=== PATIENT | female | born 1955 | race Caucasian/White ===

== ENCOUNTER 2018-01-19 21:24 | Emergency (ER) | payer MEDICARE ==
[2018-01-19 23:11] LABS: ABSOLUTE BASOPHILS # (AUTO) 0.1 10^3/uL (0.0-0.2); ABSOLUTE EOSINOPHILS # (AUTO) 0.2 10^3/uL (0.0-0.6); ABSOLUTE LYMPHOCYTES (AUTO) 2.1 10^3/uL (0.5-4.7); ABSOLUTE MONOCYTES (AUTO) 0.6 10^3/uL (0.1-1.4); ABSOLUTE NEUT (AUTO) 3.5 10^3/uL (1.7-8.2); EOSINOPHILS % (AUTO) 2.6 % (0-6); HEMATOCRIT 35.1 % (36.0-47.0); HEMOGLOBIN 12.1 g/dL (12.0-15.5); LYMPHOCYTES % (AUTO) 32.5 % (13-45); MEAN CORPUSCULAR HGB CONC 34.5 g/dL (32.0-36.0); MEAN CORPUSCULAR VOLUME 90 fl (80-97); MONOCYTES % (AUTO) 9.5 % (3-13); PLATELET COUNT 293 10^3/uL (150-450); RED CELL DISTRIBUTION WIDTH 13.6 % (11.5-14.0); SEGMENTED NEUTROPHILS % (AUTO) 54.4 % (42-78); TOTAL CELLS COUNTED % (AUTO) 100 %; WHITE BLOOD COUNT 6.5 10^3/uL (4.0-10.5)
--- NOTE | 2018-01-19 23:13 | ER Document Report ---
ED General - General Chief Complaint: Other Stated Complaint: ALTERED MENTAL STATUS Time Seen by Provider: 01/19/18 21:56 Notes: Patient is a 62-year-old female who presents with complaint of a few different complaints. An ambulnce was called by the hotel staff asked the patient came up to the front hotel desk that she was standing up and asked for a depends diaper. Patient's was recently at [facility] but she was kicked out because per report from the nursing staff she was running around the halls and keeping people up. Patient has a history of psychiatric illness. She is on psychiatric medications. Patient's only complaint is that she has chronic pain medicine and is requesting chronic pain medicine even though she has none prescribed for her. Patient denies any fevers or infections. She denies any other complaints at this time. She admits that she does not have a place to stay at this time. TRAVEL OUTSIDE OF THE [place] IN LAST 30 DAYS: No - Related Data Allergies/Adverse Reactions: aspirin [Aspirin] Allergy (Verified 02/28/15 12:21) guaifenesin [From Mucinex] Allergy (Verified 02/28/15 12:21) ibuprofen [From Motrin] Allergy (Verified 02/28/15 12:21) levetiracetam [From Keppra] Allergy (Verified 02/28/15 12:21) lithium [Morehouse] Allergy (Verified 02/28/15 12:21) metaxalone [From Skelaxin] Allergy (Verified 02/28/15 12:21) methadone [Methadone] Allergy (Verified 02/28/15 12:21) mirtazapine [From Remeron] Allergy (Verified 02/28/15 12:21) nefazodone HCl [From Serzone] Allergy (Verified 02/28/15 12:21) nortriptyline HCl [From Pamelor] Allergy (Verified 02/28/15 12:21) NSAIDS (Non-Steroidal Anti-Inflamma [Nsaids] Allergy (Verified 02/28/15 12:21) omeprazole [From Prilosec] Allergy (Verified 02/28/15 12:21) oxycodone HCl [From Percocet] Allergy (Verified 02/28/15 22:47) Penicillins Allergy (Verified 02/28/15 12:21) pregabalin [From Lyrica] Allergy (Verified 02/28/15 12:21) saccharin [Saccharin] Allergy (Verified 02/28/15 12:21) ziprasidone HCl [From Geodon] Allergy (Verified 02/28/15 12:21) steroid Allergy (Uncoded 02/28/15 12:21) Past Medical History - Social History Smoking Status: Unknown if Ever Smoked Frequency of alcohol use: None Drug Abuse: None Family History: Reviewed & Not Pertinent Patient has suicidal ideation: No Patient has homicidal ideation: No - Past Medical History Cardiac Medical History: Reports: Hx Hypertension Renal/ Medical History: Denies: Hx Peritoneal Dialysis Psychiatric Medical History: Reports: Hx Bipolar Disorder - Immunizations Hx Diphtheria, Pertussis, Tetanus Vaccination: Yes Review of Systems - Review of Systems Notes: My Normal Review Basic REVIEW OF SYSTEMS: CONSTITUTIONAL : Denies fever, chills, or sweats. Denies recent illness. EENT: Denies eye, ear, throat, or mouth pain or symptoms. Denies nasal or sinus congestion. CARDIOVASCULAR: Denies chest pain. RESPIRATORY: Denies cough, cold, or chest congestion. Denies shortness of breath, difficulty breathing, or wheezing. GASTROINTESTINAL: Denies abdominal pain. Denies nausea, vomiting, or diarrhea. GENITOURINARY: Denies difficulty urinating, painful urination, burning, frequency, or blood in urine. MUSCULOSKELETAL: Complains of total body pain which she says is chronic. SKIN: Denies rash or skin lesions. NEUROLOGICAL: Denies altered mental status or loss of consciousness. Denies headache. Denies weakness or paralysis or loss of use of either side. Denies problems with gait or speech. Denies sensory or motor loss. PSYCHIATRIC: History of psychiatric illness ALL OTHER SYSTEMS REVIEWED AND NEGATIVE. Physical Exam - Vital signs Vitals: Temp Pulse Resp BP Pulse Ox 97.7 F 81 17 122/70 100 01/19/18 21:54 01/19/18 21:54 01/19/18 21:54 01/19/18 21:54 01/19/18 21:54 - Notes Notes: General Appearance: Well nourished, alert, cooperative, no acute distress, no obvious discomfort. Vitals: reviewed, See vital signs table. Head: no swelling or tenderness to the head Eyes: PERRL, EOMI, Conjuctiva clear Mouth: No decreasd moisture Throat: No tonsillar inflammation, No airway obstruction, No lymphadenopathy Neck: Supple, no neck tenderness, No thyromegaly Lungs: No wheezing, No rales, No rhonci, No accessory muscle use, good air exchange bilaterally. Heart: Normal rate, Regular rythm, No murmur, no rub Abdomen: Normal BS, soft, No rigidity, No abdominal tenderness, No guarding, no rebound, no abdominal masses, no organomegaly Extremities: strength 5/5 in all extremities, good pulses in all extremities, no swelling or tenderness in the extremities, no edema. Skin: warm, dry, appropriate color, no rash Neuro: speech clear, oriented x 3, responds appropriately to questions. Patient does answer all my questions appropriately. Cranial nerves II through XII are intact. Distal sensation intact. Good strength in all 4 extremities. Patient will occasionally suddenly shake her legs when she is sitting in bed. This appears completely voluntarily. When she does this she says that she does it because she needs pain medications to take in conjunction with her psychiatric medications. Course - Re-evaluation Re-evalutation: 01/20/18 01:09 Patient is well-appearing. She is not altered or confused on my exam. She answers all my questions 100% appropriately. Patient does have psychiatric illness which she does require medications for. She is currently on some medications. Unclear whether or not she takes is that she supposed to. She is requesting narcotic pain medicines which she will not receive as she is not prescribed any on a regular basis. I reviewed her previous records when she was here a few years ago and at that time she was also consistently requesting narcotic pain medicine. I do not think patient requires involuntary commitment at this time; however, I do think it would be beneficial for her to see mental health and aids social worker. I think be beneficial to see mental health to make sure that she is on appropriate medications for her underlying psychiatric history and also to see aids social worker to discuss further housing arrangements for the patient being the obviously she has been kicked out of assisted living and also the hotel. Dictation of this chart was performed using voice recognition software; therefore, there may be some unintended grammatical errors. - Vital Signs Vital signs: Temp Pulse Resp BP Pulse Ox 97.7 F 81 17 122/70 100 01/19/18 21:54 01/19/18 21:54 01/19/18 21:54 01/19/18 21:54 01/19/18 21:54 - Laboratory Result Diagrams: 01/19/18 22:55 01/19/18 22:55 Laboratory results interpreted by me: 01/19/18 01/19/18 01/19/18 22:55 22:55 23:41 Hct 35.1 L Potassium 3.4 L Total Bilirubin 0.1 L Ur Leukocyte Esterase LARGE H Salicylates < 1.0 L Acetaminophen < 10 L - EKG Interpretation by Me Additional EKG results interpreted by me: 01/19/18 23:13 EKGs reviewed and interpreted by me. EKG shows sinus rhythm with a rate of [address] segment elevation or depression. No ischemic T wave inversions. ID interval, QRS duration, QTc intervals are within normal range. Old EKG for comparison is from March 04, 2015. Discharge - Discharge Clinical Impression: Psychiatric complaint UTI (urinary tract infection) Qualifiers: Urinary tract infection type: site unspecified Hematuria presence: without hematuria Qualified Code(s): N39.0 - Urinary tract infection, site not specified Additional Instructions: Your urine shows evidence of a mild urinary tract infection. Please take the antibiotic as prescribed. Please follow up with a doctor in 2-3 days. Return to the ER if you have fevers, vomiting, or feel unwell. Prescriptions: Cephalexin Monohydrate [Keflex 500 mg Capsule] 500 mg PO BID #14 capsule
[2018-01-19 23:31] LABS: ALANINE AMINOTRANSFERASE 25 U/L (9-52); ALBUMIN 3.8 g/dL (3.5-5.0); ALKALINE PHOSPHATASE 71 U/L (38-126); ANION GAP 11 (5-19); ASPARTATE AMINO TRANSFERASE 24 U/L (14-36); BILIRUBIN,DIRECT 0.1 mg/dL (0.0-0.4); BILIRUBIN,TOTAL 0.1 mg/dL (0.2-1.3); BLOOD UREA NITROGEN 13 mg/dL (7-20); CALCIUM 9.2 mg/dL (8.4-10.2); CARBON DIOXIDE 26 mmol/L (22-30); CHLORIDE 107 mmol/L (98-107); GLUCOSE 98 mg/dL (75-110); POTASSIUM 3.4 mmol/L (3.6-5.0); TOTAL PROTEIN 6.8 g/dL (6.3-8.2)
[2018-01-19 23:36] LABS: ACETAMINOPHEN < 10 ug/mL (10-30); ALCOHOL < 10 mg/dL (NONE DETECTED); SALICYLATE < 1.0 mg/dL (2.0-20.0)
[2018-01-20 00:15] LABS: APPEARANCE,URINE CLEAR; BILIRUBIN,URINE NEGATIVE (NEGATIVE); COLOR,URINE YELLOW; GLUCOSE, URINE NEGATIVE (NEGATIVE); KETONES,URINE NEGATIVE (NEGATIVE); LEUKOCYTE ESTERASE,URINE LARGE (NEGATIVE); NITRITE,URINE NEGATIVE (NEGATIVE); PROTEIN,URINE NEGATIVE (NEGATIVE); URINE SPECIFIC GRAVITY 1.014; UROBILINOGEN,URINE NEGATIVE mg/dL (<2.0)
[2018-01-20 00:37] LABS: URINE AMPHETAMINES SCREEN NEGATIVE; URINE BARBITURATES SCREEN NEGATIVE; URINE BENZODIAZEPINES SCREEN UNCONFIRMED POSITIVE; URINE COCAINE SCREEN NEGATIVE; URINE MARIJUANA (THC) SCREEN NEGATIVE; URINE METHADONE SCREEN NEGATIVE; URINE PHENCYCLIDINE SCREEN NEGATIVE
[2018-01-20] MEDS ORDERED: CEPHALEXIN 500 MG CAPSULE PO ONE (01:17)
[2018-01-20] MEDS ORDERED: ROPINIROLE HCL 0.25 MG TABLET PO ONE (03:24)
[2018-01-20] MEDS ORDERED: ROPINIROLE HCL 0.25 MG TABLET ONE (04:13)
[2018-01-20] MEDS ORDERED: CEPHALEXIN 500 MG CAPSULE PO SCH (08:00)
[2018-01-20] MEDS ORDERED: LORAZEPAM 1 MG TABLET PO ONE (09:16)
--- NOTE | 2018-01-20 09:31 | EKG REPORT ---
SEVERITY:- BORDERLINE ECG - SINUS RHYTHM PROBABLE LEFT ATRIAL ABNORMALITY : Confirmed by: Getachew Browning 20-Jan-2018 09:30:12
[2018-01-20] MEDS ORDERED: GABAPENTIN 300 MG CAPSULE PO SCH (10:45)
[2018-01-20] MEDS: CEPHALEXIN 500 MG CAPSULE PO SCH ×3 (14:50→23:41)
[2018-01-20] MEDS: GABAPENTIN 300 MG CAPSULE PO SCH ×2 (17:22→23:42)
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
[2018-01-21] MEDS: GABAPENTIN 300 MG CAPSULE PO SCH ×4 (08:54→23:35)
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
[2018-01-21] MEDS: CEPHALEXIN 500 MG CAPSULE PO SCH ×4 (09:17→21:14)
--- NOTE | 2018-01-21 12:26 | RADIOLOGY REPORT (SQ) ---
EXAM DESCRIPTION: CT HEAD WITHOUT COMPLETED DATE/TIME: 01/21/2018 12:16 pm REASON FOR STUDY: Altered mental status COMPARISON: None. TECHNIQUE: Axial images acquired through the brain without intravenous contrast. Images reviewed wi th bone, brain and subdural windows. Additional sagittal and coronal reconstructions were generated. Images stored on PACS. All CT scanners at this facility use dose modulation, iterative reconstruction, and/or weight based d osing when appropriate to reduce radiation dose to as low as reasonably achievable (ALARA). [facility]: Dose Right [facility]: CareDose [facility]: Dose Right [facility]: Teradose 4D [facility]: tracx RADIATION DOSE: CT Rad equipment meets quality standard of care and radiation dose reduction techniq ues were employed. CTDIvol: 48.6 mGy. DLP: 954 mGy-cm. mGy. LIMITATIONS: None. FINDINGS: VENTRICLES: Normal size and contour. CEREBRUM: No masses. No hemorrhage. No midline shift. No evidence for acute infarction. Normal gra y/white matter differentiation. No areas of low density in the white matter. CEREBELLUM: No masses. No hemorrhage. No alteration of density. No evidence for acute infarction. EXTRAAXIAL SPACES: No fluid collections. No masses. ORBITS AND GLOBE: No intra- or extraconal masses. Normal contour of globe without masses. CALVARIUM: No fracture. PARANASAL SINUSES: No fluid or mucosal thickening. SOFT TISSUES: No mass or hematoma. OTHER: No other significant finding. IMPRESSION: NORMAL BRAIN CT WITHOUT CONTRAST. EVIDENCE OF ACUTE STROKE: NO. COMMENT: Quality ID # [id number]: Final reports with documentation of one or more dose reduction techniques (e.g., Automated exposure control, adjustment of the mA and/or kV according to patient size, use of iterative reconstruction technique) TECHNICAL DOCUMENTATION: JOB ID: [id number] [employer]- All Rights Reserved Reading location - IP/workstation name: [email or web address]
[2018-01-21] MEDS: PROPRANOLOL HCL 10 MG TABLET PO SCH ×2 (14:31→21:15)
[2018-01-21] MEDS: LANSOPRAZOLE 30 MG TAB.RAP.DR PO SCH (15:53)
[2018-01-21] MEDS ORDERED: HALOPERIDOL 2 MG TABLET PO SCH (18:00)
[2018-01-21] MEDS: BENZTROPINE MESYLATE 1 MG TABLET PO SCH (21:15)
[2018-01-21] MEDS: HALOPERIDOL 1 MG TABLET PO SCH (21:16)
[2018-01-21] MEDS: OLANZAPINE 5 MG TABLET PO SCH (21:16)
[2018-01-21] MEDS: DIAZEPAM 5 MG TABLET PO SCH (21:16)
[2018-01-22] MEDS: GABAPENTIN 300 MG CAPSULE PO SCH ×2 (06:36→12:59)
[2018-01-22] MEDS: LANSOPRAZOLE 30 MG TAB.RAP.DR PO SCH (06:36)
[2018-01-22] MEDS: PROPRANOLOL HCL 10 MG TABLET PO SCH ×2 (06:36→12:59)
[2018-01-22] MEDS: HALOPERIDOL 1 MG TABLET PO SCH (09:08)
[2018-01-22] MEDS: BENZTROPINE MESYLATE 1 MG TABLET PO SCH (09:08)
[2018-01-22] MEDS: CEPHALEXIN 500 MG CAPSULE PO SCH ×2 (09:09→13:00)
[2018-01-22] MEDS: OLANZAPINE 5 MG TABLET PO SCH (09:09)
[2018-01-22] MEDS: DIAZEPAM 5 MG TABLET PO SCH (09:09)
--- NOTE | 2018-01-22 09:14 | ER Document Report ---
Doctor's Note Notes: 01/22/18 09:13 Late entry for yesterday, 01/21/18. I examined patient yesterday, but failed to write a note. Patient says she is feeling much better. Vital signs are all normal. Her tachycardia noted the day before is no longer present. Patient is being treated for a UTI with Keflex. Patient appears to be medically stable for transfer or discharge. Jose Mcneill MD
--- NOTE | 2018-01-22 09:23 | ER Document Report ---
Doctor's Note Notes: 01/22/18 09:2 As the rounding physician this AM, I assessed the patient's labs, vitals, and records. No concerning findings this morning. Patient denies any acute complaints. Patient is cleared for disposition by psychiatry. PHYSICAL EXAMINATION: GENERAL: Well-appearing, well-nourished and in no acute distress. HEAD: Atraumatic, normocephalic. EYES: Pupils equal round extraocular movements intact, conjunctiva are normal. ENT: Nares patent NECK: Normal range of motion LUNGS: No respiratory distress Musculoskeletal: Normal range of motion NEUROLOGICAL: Normal speech, normal gait. PSYCH: Normal mood, normal affect. SKIN: Warm, Dry, normal turgor, no rashes or lesions noted. 01/22/18 15:54 Patient offered placement in a fci but is refusing. She will be discharged home.
--- NOTE | 2018-01-22 15:47 | PSYCHOLOGICAL NOTE ---
Psych Note - Psych Note Date seen by psych provider: 01/22/18 Time seen by psych provider: 09:00 Psych Note: Reason for Consult: AMS/Medication recommendations Consistent permissions: Kody Sullivan [phone]; not a working number Check in conducted with patient Patient reports she does not want to go to the fpc states the medications she is on does not allow her to be there. When it was explained to the patient the behavioral health team can call and confirm that and possible still assist with a bed, she disclosed she was not interested in staying in a fpc. When asked where the patient will go upon discharge, she asked if her family has been called. It was confirmed that her son had been contact and a message was left but he has not called back. She reports she would call him because he might not call since he does not recognize the voice. She reports she understands she is unable to stay in the emergency department. She confirms she is in [facility] then again reports not knowing how she got here. 01/21/[address]: No findings Medication recommendations per [facility]'s contracted psychiatrist MD Lotus as follows please continue taking home medications as prescribed however decrease Zyprexa to 5 mg twice daily Please decrease frequency of Neurontin to 600mg every 8 hours 296.42 (F31.12) Bipolar 1 Disorder, Moderate, Most Current Episode Manic per history Impression\\plan: Patient is cleared from acute psychiatric services. It is noted the patient received head CT yesterday with no findings. Patient's current presentation and head CT does not support patient's self-report of "dementia with sundowners."Patient is orientated to person place time and circumstance. APS has been present to interview the patient. There is no findings of the patient being recently released from an assisted living as patient reported. Patient is refusing assistance into a fpc.Patient does not meet IVC criteria per [place] GS 122C. Patient denies suicidal and homicidal ideations. Patient is not demonstrating any behaviors indicating she is responding to internal stimuli i.e. organized linear thought process, good eye contact and normal conversational speech. Patient is noted to demonstrate some behavioral aspects with possible secondary gain motive. Inpatient psychiatric treatment would not be appropriate for this patient. Patient is recommended to follow-up with her outpatient mental health provider. She has been provided a local resource list including mobile crisis contact information. Dr. Fraser was consulted care management is patient's medical attending physicians agreement.
[2018-01-22 16:36] VITALS: BP 128/77
== END 2018-01-22 16:32 | disposition home or self-care (01) ==
LOC: ER 21:24
DX: F31.9 Bipolar disorder, unspecified (principal); N39.0 Urinary tract infection, site not specified; R52 Pain, unspecified; I10 Essential (primary) hypertension; Z59.0 Homelessness; Z88.6 Allergy status to analgesic agent; Z88.8 Allergy status to other drugs, medicaments and biological substances; Z88.5 Allergy status to narcotic agent
CPT/HCPCS: 93005; 99285; 36415; 80307 ×4; 85025; 80053; 81001; 93010; A9270 ×20; J3490